=== PATIENT | female | born 1975 | race Caucasian/White ===

== ENCOUNTER 2017-02-21 11:59 | Emergency (ER) | payer OTHER ==
[~2017-02-21] VITALS: Ht 175.3 cm; Wt 78.1 kg
[~2017-02-21 11:59] MED LIST: APRESOLINE10 MG PO; CAMILA0.35 MG PO; IMITREX100 MG PO; OXYCODONE HCL5 M1 PO; OXYCONTIN10 MG PO; ULTRAM50 MG PO; ZANTAC150 MG PO; ZYRTEC10 M2 PO
[2017-02-21 13:50] LABS: EOSINOPHIL (%) 2.1 % (0-5); EOSINOPHIL COUNT 0.2 K/uL (0-0.3); HEMATOCRIT 42.6 % (36.0-46.0); IMMATURE GRANULOCYTE (%) 0.6 % (0.0-0.7); IMMATURE GRANULOCYTE COUNT 0.1 K/uL; INSTRUMENT ABS NEUTROPHIL CT 6.4 K/uL; LYMPHOCYTE COUNT 0.9 K/uL (1.0-2.8); MCH 30.7 PG (29.0-34.0); MCHC 34.3 G/DL (30.0-36.0); MCV 89.5 FL (83-99); MEAN PLAT.VOLUME 11.2 uM^3 (9.5-12.4); MONOCYTE COUNT 0.5 K/uL (0-0.8); NEUTROPHIL (%) 80.1 % (45-76); NEUTROPHIL COUNT 6.4 K/uL (1.8-6.4); PLATELET COUNT 209 K/uL (156-360); RBC DIS.WIDTH-CV 12.1 % (11.8-14.6); RED BLOOD COUNT 4.76 M/uL (3.80-5.20)
[2017-02-21 14:03] LABS: CHLORIDE 105 mEq/L (99-109); POTASSIUM 4.1 mEq/L (3.7-5.4); SODIUM 137 mEq/L (136-147)
[2017-02-21 14:05] LABS: GLUCOSE 111 mg/dL (70-99)
[2017-02-21 14:06] LABS: ANION GAP 8 MEQ/L (2-14)
[2017-02-21 14:09] LABS: GFR ESTIMATE (CALCULATED) > 59 mL/min/
[2017-02-21 14:10] LABS: UREA NITROGEN (BUN) 5 mg/dL (9-23)
[2017-02-21] MEDS ORDERED: PREDNISONE50 MG PO (14:23)
[2017-02-21] MEDS ORDERED: PROAIR HFA8.5 GM IH (14:23)
[2017-02-21] MEDS ORDERED: ZITHROMAX Z-PA250 MG PO (14:23)
[2017-02-21 14:48] VITALS: BP 118/85
== END 2017-02-21 14:48 | disposition home or self-care (01) ==
LOC: EME 11:59
PROVIDERS: Emergency Medicine
DX: J20.9 Acute bronchitis, unspecified (principal); D86.9 Sarcoidosis, unspecified; G89.29 Other chronic pain; F17.200 Nicotine dependence, unspecified, uncomplicated
CPT/HCPCS: 71020; 80048; 85025; 94640; 94640 76; 99281; 99284; J7512